=== PATIENT | female | born 1960 | race Caucasian/White ===

== ENCOUNTER 2025-03-31 11:17 | Outpatient (CLI) | payer OTHER, SELFPAY ==
--- NOTE | 2025-03-31 11:20 | MM_ITS ---
WS: [id number] VIEWS: MLO and CC views both breasts. 3D digital tomosynthesis is also included in this exam. No previous exams Findings: The breasts are almost entirely fatty. No sign of suspicious mass, tumor calcification or architectural distortion. MM/MM scr BI tomosynthesis [id number] Impression: BI-RADS: 2 - Benign. FOLLOW-UP: 1 Year Follow-up This mammogram was also analyzed by the Computer Aided Detection System R2 Imag e [employer].
== END 2025-03-31 11:18 | disposition home or self-care (01) ==
LOC: MOBLMAM 11:21
PROVIDERS: PCP Family Medicine; Visit Provider Family Medicine
DX: Z12.31 Encounter for screening mammogram for malignant neoplasm of breast (principal); R92.313 Mammographic fatty tissue density, bilateral breasts
CPT/HCPCS: 77063; 77067